=== PATIENT | female | born 1975 | race Caucasian/White ===

== ENCOUNTER 2017-07-20 11:53 | Day surgery (SDC) | payer BC ==
[2017-07-18 13:06] VITALS: BMI 46.7
--- NOTE | 2017-07-20 06:56 | HP ---
History & Physical Update - History History: No Change - Physical Physical: No Change - Assessment Assessment: No Change - Plan Plan: No Change
[~2017-07-20 11:53] MED LIST: CEFAZOLIN 2 GM in DEXTROSE 5%-WATER - 100 ML IVPB ONE; GABAPENTIN 300 MG CAPSULE (FP) PO ONE; oxyCODONE HCL 10 MG SUSTAINED ACTING TABLET PO STA
[2017-07-20] MEDS ORDERED: CEFAZOLIN 1 GM in DEXTROSE 5%-WATER - 100 ML IVPB ONE (12:06)
[2017-07-20] MEDS ORDERED: GABAPENTIN 300 MG CAPSULE (FP) PO ONE (12:06)
[2017-07-20] MEDS ORDERED: oxyCODONE HCL 10 MG SUSTAINED ACTING TABLET PO STA (12:06)
[2017-07-20] MEDS ORDERED: MIDAZOLAM HCL 2 MG/2 ML SINGLE DOSE VIAL ONE ×2 (13:35→13:50)
[2017-07-20] MEDS ORDERED: PROPOFOL 20 ML ONE ×2 (13:35)
[2017-07-20] MEDS ORDERED: BUPIVACAINE HCL/PF 0.5% (5MG/ML) 10 ML VIAL ONE (13:42)
[2017-07-20] MEDS ORDERED: ceFAZolin SODIUM 1 GM VIAL ONE (14:06)
[2017-07-20] MEDS ORDERED: DEXAMETHASONE SOD PHOSPHATE 4 MG/1 ML VIAL ONE (14:36)
[2017-07-20] MEDS ORDERED: ONDANSETRON 4 MG/2 ML VIAL ONE (14:36)
[2017-07-20] MEDS ORDERED: oxyCODONE HCL 5 MG TABLET PO PRN (14:39)
[2017-07-20] MEDS ORDERED: ONDANSETRON 4 MG/2 ML VIAL IVPUSH PRN (14:39)
[2017-07-20] MEDS ORDERED: LACTATED RINGERS SOLUTION 1,000 ML IV SCH (14:45)
--- NOTE | 2017-07-20 16:01 | OP ---
Operative Note - Note: Operative Date: 07/20/17 Pre-Operative Diagnosis: L4/5 spinal stenosis with radiculopathy Operation: L4/5 laminectomy (bilateral) Post-Operative Diagnosis: Same as Pre-op Surgeon: Marcos Holcomb Almond Grinder: Chemo Guzman Anesthesiologist/CARE TRANSITION COORDINATOR: Roxana Aguilar Anesthesia: Spinal Specimens Removed: L4/5 disc Estimated Blood Loss (mls): 25 Fluid Volume Replaced (mls): 800 Operative Report Dictated: Yes
[2017-07-20] MEDS ORDERED: traMADol HCL 50 MG TABLET PO ONE (16:02)
[2017-07-20] MEDS ORDERED: ACETAMINOPHEN 1000 MG/100 ML VIAL (NON FORMULARY) IVPB ONE (16:02)
--- NOTE | 2017-07-20 16:02 | SURG ---
Surgery Immigration Guard Note Immigration Guard: Chemo Guzman PA-C Date of Service: 07/20/17 Diagnosis: L4/5 spinal stenosis with radiculopathy Procedure: L4/5 laminectomy (bilateral) I was present for the entirety of the operative procedure. For further detail, please refer to operative report. Visit type - Case Type Case Type: Scheduled Admission - New patient This patient is new to me today: Yes Date on this admission: 07/20/17
[2017-07-20] MEDS ORDERED: FAMOTIDINE 20 MG/50 ML IVPB 50 ML IVPB ONE ×2 (16:08→16:21)
[2017-07-20] MEDS ORDERED: FAMOTIDINE 20 MG PREMIXED IVPB IVPB ONE (16:20)
[2017-07-20] MEDS ORDERED: ACETAMINOPHEN INJECTION 100 ML IVPB ONE (16:31)
[2017-07-20 17:38] VITALS: TEMP 98.1
[2017-07-20 19:19] VITALS: BP 140/83; PULSE 89
--- NOTE | 2017-07-24 14:04 | PATH ---
Surgical Pathology Report Patient Name: FRANTZ VEGA [facility]. Rec. #: [id number] /Age/Gender: 1975 (Age: 42) / F Account: [id number] Location: [facility] Taken: 07/20/2017 Received: 07/21/2017 Reported: 07/24/2017 Physicians: Marcos Holcomb M.D. Specimen(s) Received DISC L4-L5 Clinical History Spinal stenosis Final Diagnosis INTERVERTEBRAL DISC, L4-5, PARTIAL EXCISION: PORTIONS OF INTERVERTEBRAL DISC. Electronically Signed Bernardo Bryson M.D. Gross Description Received in formalin, labeled "disc L4-L5" are two fragments of verdugo-white fibrocartilaginous material and possible bone and one, and the 1.5 and 1.6 cm in greatest dimension. Submitted entirely in one cassette following decalcification. AF/07/21/2017 final/07/21/2017
--- NOTE | 2017-09-21 14:03 | OP ---
DATE OF OPERATION: 07/20/2017 PREOPERATIVE DIAGNOSIS: Spinal stenosis, L4-L5. POSTOPERATIVE DIAGNOSIS: Spinal stenosis, L4-L5. PROCEDURE PERFORMED: Laminectomy, L4-L5. SURGEON: Marcos Holcomb MD AUTO PAINTER HELPER: FLORESITA Holliday ESTIMATED BLOOD LOSS: 50 mL. INTRAVENOUS FLUIDS: Per Anesthesia. ANESTHESIA: Spinal. COMPLICATIONS: None. CONDITION: The patient was brought to the PACU in stable condition. INDICATIONS FOR SURGERY: The patient is a 42-year-old female who has been suffering from pain from her back down the leg. X-rays and MRI were completed, which show that she has spinal stenosis at L4-L5. She had gone through an exhaustive course of treatment including medications, physical therapy as well as injections. Unfortunately, her pain continued to persist in spite of all this. At this point, the risks, benefits and alternatives were discussed and the patient consented to surgery. DESCRIPTION OF PROCEDURE: The patient was brought to the operating room by the Anesthesia staff. After appropriate patient identification was performed, spinal anesthesia was given. The patient was able to position herself prone onto the OR table, with all areas of bony prominences well padded at that time. Two needles were placed into the back to chanell off the L4-L5 segment and x-rays taken to confirm. The needle was removed and 10 mL of lidocaine with epinephrine were injected into her back at this time. Her back was prepped and draped in sterile manner. At this point, a time-out was completed. An incision was made from the top of L4 down to the bottom of L5. Dissection was carried down to the fascia. The fascia was then split open at this time and appropriate retractors were placed in. A spinal needle was placed onto the L4 lamina and I marked off the L4-L5 level. X -rays were taken to confirm that. The needle was removed and the microscope was brought in. At this point, the L4 and L5 spinous ligament was removed. A portion of the L4 and L5 lamina was removed. The flavum was identified and was removed. The nerve root was mobilized medially and a disk herniation was noted. It was removed. By the end of the procedure, the L5 nerve root appeared to be well decompressed. All bleeding was well controlled at this time. A steroid was placed over the nerve root. FloSeal was placed over that. The fascia was closed with a number 1 Vicryl suture. The subcutaneous tissue was closed with 2-0 Vicryl suture. The skin was closed with 3-0 Monocryl suture. Dermabond was applied. Steri-Strips were applied. A sterile dressing was applied. The patient was placed supine on the OR bed and brought to the PACU in stable condition. Bibiana [id number] MTDD
== END 2017-07-20 19:25 | disposition home or self-care (01) ==
LOC: FASU 11:53
PROVIDERS: ATTEND Orthopaedic Surgery Orthopaedic Surgery of the Spine
PROC: 01NB0ZZ Release Lumbar Nerve, Open Approach (ICD-10-PCS; principal; 2017-07-20 14:45)
DX: M48.07 Spinal stenosis, lumbosacral region (principal)
CPT/HCPCS: 72100-TC; 76000-TC; 88304-TC; 94760